=== PATIENT | male | born 1995 | race Caucasian/White ===

== ENCOUNTER 2022-05-15 20:53 | Inpatient (IN) ==
[2022-05-15] MEDS ORDERED: 0.9 % Sodium Chloride 1,000 ML IV ONE (21:26)
[2022-05-15] MEDS ORDERED: Ondansetron 4 MG/2 ML VIAL IVP PRN ×2 (21:26→22:10)
[2022-05-15 21:30] LABS: Basophils # 0.1 K/mcL (0.0-0.2); Basophils % 0.6 %; Eosinophils % 0.4 %; Hematocrit 40.7 % (37.5-50.1); Hemoglobin 13.5 g/dL (12.9-16.9); Immature Granulocytes % 1.3 % (0-4); Lymphocytes # 0.4 K/mcL (0.6-4.6); Lymphocytes % 4.4 %; Mean Corpuscular HGB Conc 33.2 g/dL (31.6-35.5); Mean Corpuscular Volume 84.4 fL (83.0-100.0); Mean Platelet Volume 9.4 fL (9.4-12.4); Monocytes # 0.7 K/mcL (0.0-1.3); Monocytes % 7.5 %; Neutrophils # 8.1 K/mcL (1.6-8.9); Platelet Count 195 K/mcL (140-400); Red Blood Count 4.82 M/mcL (4.19-5.50); Red Cell Distribution Width 12.7 % (11.5-14.5); Segmented Neutrophils % 85.8 %; White Blood Count 9.5 K/mcL (4.3-11.1)
[2022-05-15 21:40] LABS: INR 1.1
[2022-05-15 21:42] LABS: Activated Partial Thrombo Time 39.9 Seconds (26.0-36.0)
[2022-05-15] MEDS ORDERED: methylPREDNISolone 125 MG/2 ML VIAL IVP PRN (22:10)
[2022-05-15] MEDS ORDERED: EPINEPHrine 1 MG/ML VIAL IM PRN (22:10)
[2022-05-15] MEDS ORDERED: Acetaminophen 325 MG TABLET PO PRN (22:10)
[2022-05-15 22:12] LABS: Alanine Aminotransferase 27 Units/L (7-52); Albumin 4.1 g/dL (3.5-5.7); Albumin/Globulin Ratio 1.4 (1.1-2.2); Alkaline Phosphatase 44 Units/L (34-104); Aspartate Amino Transferase 19 Units/L (13-39); BUN/Creatinine Ratio 23 (6-26); Bilirubin,Indirect 0.3 mg/dL (0.0-1.0); Bilirubin,Total 0.3 mg/dL (0.3-1.0); Blood Urea Nitrogen 19 mg/dL (6-20); C-Reactive Protein 19 mg/L (Less than 10); Carbon Dioxide 21 mEq/L (23-29); Chloride 107 mEq/L (98-107); Ferritin 35 ng/mL (20-250); Globulin 2.9 g/dL (2.4-3.5); Glucose 96 mg/dL (70-105); Lactate Dehydrogenase 145 Units/L (140-271); Magnesium 1.7 mg/dL (1.6-2.6); Osmolality,Calculated 286 (280-300); Phosphorous 3.9 mg/dL (2.7-4.5); Potassium 3.6 mEq/L (3.5-5.1); Sodium 137 mEq/L (136-145); Troponin I < 0.03 ng/mL (< 0.04)
[2022-05-15 22:30] LABS: Influenza A PCR Negative (Negative); Influenza B PCR Negative (Negative); Resp. Syncytial Virus PCR Negative (Negative)
[2022-05-15 22:31] LABS: SARS-CoV-2 by PCR (In House) Positive (Negative)
[2022-05-15] MEDS ORDERED: Iopamidol - 370 500 ML MLS IVP ONE (23:18)
[2022-05-16] MEDS ORDERED: Ipratropium/Albuterol Neb 3 ML IH ONE (00:25)
[2022-05-16] MEDS ORDERED: Ondansetron 4 MG/2 ML VIAL IVP PRN (01:32)
[2022-05-16] MEDS ORDERED: Naloxone 0.4 MG/ML INJ IVP PRN (01:32)
[2022-05-16] MEDS ORDERED: Ipratropium/Albuterol Neb 3 ML IH PRN (01:35)
[2022-05-16] MEDS ORDERED: Remdesivir 200 MG in 0.9 % Sodium Chloride 100 ML IVPB ONE (04:00)
[2022-05-16 04:13] LABS: Basophils # 0.1 K/mcL (0.0-0.2); Basophils % 0.8 %; Eosinophils % 0.6 %; Hematocrit 42.8 % (37.5-50.1); Hemoglobin 13.6 g/dL (12.9-16.9); Immature Granulocytes % 1.4 % (0-4); Lymphocytes # 0.5 K/mcL (0.6-4.6); Lymphocytes % 7.9 %; Mean Corpuscular HGB Conc 31.8 g/dL (31.6-35.5); Mean Corpuscular Hemoglobin 27.5 pg (28.0-33.3); Mean Corpuscular Volume 86.5 fL (83.0-100.0); Mean Platelet Volume 9.8 fL (9.4-12.4); Monocytes # 0.7 K/mcL (0.0-1.3); Monocytes % 11.1 %; Neutrophils # 5.2 K/mcL (1.6-8.9); Platelet Count 174 K/mcL (140-400); Red Blood Count 4.95 M/mcL (4.19-5.50); Red Cell Distribution Width 12.7 % (11.5-14.5); Segmented Neutrophils % 78.2 %; White Blood Count 6.6 K/mcL (4.3-11.1)
[2022-05-16] MEDS: Azithromycin 500 MG in 0.9 % Sodium Chloride 250 ML IVPB SCH (04:14)
[2022-05-16 04:36] LABS: Alanine Aminotransferase 24 Units/L (7-52); Albumin/Globulin Ratio 1.6 (1.1-2.2); Alkaline Phosphatase 44 Units/L (34-104); Aspartate Amino Transferase 18 Units/L (13-39); BUN/Creatinine Ratio 20 (6-26); Bilirubin,Direct 0.1 mg/dL (0.0-0.2); Bilirubin,Indirect 0.2 mg/dL (0.0-1.0); Bilirubin,Total 0.3 mg/dL (0.3-1.0); Blood Urea Nitrogen 16 mg/dL (6-20); Carbon Dioxide 23 mEq/L (23-29); Chloride 108 mEq/L (98-107); Globulin 2.5 g/dL (2.4-3.5); Glucose 91 mg/dL (70-105); Magnesium 1.8 mg/dL (1.6-2.6); Osmolality,Calculated 291 (280-300); Potassium 3.5 mEq/L (3.5-5.1); Sodium 140 mEq/L (136-145); Total Protein 6.5 g/dL (6.4-8.9); Troponin I < 0.03 ng/mL (< 0.04)
[2022-05-16] MEDS: Cholecalciferol (D-3) 1,000 UNIT (25MCG) TABLET PO SCH (08:57)
[2022-05-16] MEDS ORDERED: CLOZAPINE 100 MG PO SCH (09:00)
[2022-05-16] MEDS ORDERED: BUSPIRONE HCL 10 MG PO SCH (09:00)
[2022-05-16] MEDS: *HR* Enoxaparin 40 MG/0.4 ML SYRINGE SQ SCH (09:01)
[2022-05-16] MEDS ORDERED: VISINE TEARS DROPS 15 ML BOTH EYES PRN (15:30)
[2022-05-16] MEDS ORDERED: Ibuprofen 400 MG TABLET PO PRN (15:51)
[2022-05-16] MEDS: Acetaminophen 325 MG TABLET PO PRN (17:11)
[2022-05-16] MEDS: Nicotine 2 MG GUM BC PRN ×2 (17:12→21:00)
[2022-05-16] MEDS: Ibuprofen 400 MG TABLET PO SCH (20:57)
[2022-05-16] MEDS: cloZAPine 25 MG TABLET PO SCH (20:58)
[2022-05-16] MEDS: Melatonin 3 MG TABLET PO SCH (20:58)
[2022-05-16] MEDS: cloZAPine 100 MG TABLET PO SCH (20:58)
[2022-05-16] MEDS: Pregabalin 50 MG CAPSULE PO SCH (20:59)
[2022-05-16] MEDS: Cyprohepatdine 4 MG TABLET PO SCH (20:59)
[2022-05-16] MEDS ORDERED: CLOZAPINE PO SCH (21:00)
[2022-05-16] MEDS ORDERED: Melatonin 3 MG TABLET PO SCH (21:00)
[2022-05-16] MEDS ORDERED: NON-FORMULARY MEDICATION 1 EACH EACH (Pregabalin [Lyrica] 100 MG Capsule) PO SCH (21:00)
[2022-05-17] MEDS: Remdesivir 100 MG in 0.9 % Sodium Chloride 100 ML IVPB SCH (03:18)
[2022-05-17] MEDS ORDERED: NON-FORMULARY MEDICATION 1 EACH EACH (Cholecalciferol (Vitamin D3) [Vitamin D3] 50 MCG Cap PO SCH (09:00)
[2022-05-17] MEDS: Cholecalciferol (D-3) 1,000 UNIT (25MCG) TABLET PO SCH (09:34)
[2022-05-17] MEDS: Pregabalin 50 MG CAPSULE PO SCH ×2 (09:35→22:22)
[2022-05-17] MEDS: Azithromycin 500 MG in 0.9 % Sodium Chloride 250 ML IVPB SCH (09:35)
[2022-05-17] MEDS: cloZAPine 100 MG TABLET PO SCH ×2 (09:35→22:23)
[2022-05-17] MEDS: *HR* Enoxaparin 40 MG/0.4 ML SYRINGE SQ SCH (09:36)
[2022-05-17] MEDS: polyethylene glycoL 3350 17 GM POWD.PACK PO SCH (09:40)
[2022-05-17 09:52] LABS: Albumin 3.9 g/dL (3.5-5.7); Albumin/Globulin Ratio 1.4 (1.1-2.2); Bilirubin,Direct 0.1 mg/dL (0.0-0.2); Bilirubin,Indirect 0.2 mg/dL (0.0-1.0); Bilirubin,Total 0.3 mg/dL (0.3-1.0); Globulin 2.7 g/dL (2.4-3.5); Total Protein 6.6 g/dL (6.4-8.9)
[2022-05-17] MEDS: Acetaminophen 325 MG TABLET PO PRN (09:59)
[2022-05-17] MEDS: Nicotine 2 MG GUM BC PRN ×4 (09:59→22:25)
[2022-05-17] MEDS: Ibuprofen 400 MG TABLET PO SCH ×2 (12:29→17:25)
[2022-05-17] MEDS: Cyprohepatdine 4 MG TABLET PO SCH (22:23)
[2022-05-17] MEDS: cloZAPine 25 MG TABLET PO SCH (22:23)
[2022-05-17] MEDS: Melatonin 3 MG TABLET PO SCH (22:25)
[2022-05-18] MEDS: Remdesivir 100 MG in 0.9 % Sodium Chloride 100 ML IVPB SCH (04:33)
[2022-05-18 11:21] LABS: Albumin 3.9 g/dL (3.5-5.7); Albumin/Globulin Ratio 1.3 (1.1-2.2); Bilirubin,Indirect 0.3 mg/dL (0.0-1.0); Bilirubin,Total 0.3 mg/dL (0.3-1.0); Globulin 2.9 g/dL (2.4-3.5); Total Protein 6.8 g/dL (6.4-8.9)
[2022-05-18] MEDS: Azithromycin 500 MG in 0.9 % Sodium Chloride 250 ML IVPB SCH (12:06)
[2022-05-18] MEDS: polyethylene glycoL 3350 17 GM POWD.PACK PO SCH (12:12)
[2022-05-18] MEDS: Nicotine 2 MG GUM BC SCH ×6 (12:12→23:30)
[2022-05-18] MEDS: *HR* Enoxaparin 40 MG/0.4 ML SYRINGE SQ SCH (12:12)
[2022-05-18] MEDS: cloZAPine 100 MG TABLET PO SCH ×2 (12:12→23:03)
[2022-05-18] MEDS: Ibuprofen 400 MG TABLET PO SCH ×2 (12:12→23:01)
[2022-05-18] MEDS: Pregabalin 50 MG CAPSULE PO SCH ×2 (12:13→23:01)
[2022-05-18] MEDS: Cholecalciferol (D-3) 1,000 UNIT (25MCG) TABLET PO SCH (12:14)
[2022-05-18] MEDS ORDERED: 0.9 % Sodium Chloride 1,000 ML IVC ONE (14:49)
[2022-05-18 21:13] VITALS: O2SAT 95
[2022-05-18 22:27] VITALS: BP 120/90; PULSE 99; TEMP 98
[2022-05-18] MEDS: Cyprohepatdine 4 MG TABLET PO SCH (23:01)
[2022-05-18] MEDS: Melatonin 3 MG TABLET PO SCH (23:02)
[2022-05-18] MEDS: cloZAPine 25 MG TABLET PO SCH (23:02)
== END 2022-05-19 | DRG 871 ==
LOC: EMEROOARM 20:53 → 3NENU 20:53
PROVIDERS: ADMIT Internal Medicine; ATTEND Internal Medicine